=== PATIENT | female | born 1985 | race Caucasian/White ===

== ENCOUNTER 2017-01-31 08:26 | Inpatient (IN) | payer BC ==
[2017-01-31 09:03] VITALS: BMI 29.0
[2017-01-31] MEDS: Lactated Ringer's 1,000 ML IV SCH ×3 (09:20→15:37)
[2017-01-31] MEDS ORDERED: Diphenoxylate HCl/Atropine Tablet PO PRN ×2 (09:28)
[2017-01-31] MEDS ORDERED: Promethazine HCl 25 MG/ML VIAL IM PRN ×2 (09:28→10:33)
[2017-01-31] MEDS ORDERED: LR / Pitocin 40 units/1000 ml 1,000 ML IV PRN (09:28)
[2017-01-31] MEDS ORDERED: Ibuprofen 800 MG TAB PO PRN (09:28)
[2017-01-31] MEDS ORDERED: Misoprostol 200 MCG TAB PR PRN (09:28)
[2017-01-31] MEDS ORDERED: HYDROcodone/Acetaminophen 5/325 mg Tablet PO PRN ×2 (09:28)
[2017-01-31] MEDS ORDERED: Docusate 100 MG CAP PO PRN (09:28)
[2017-01-31] MEDS ORDERED: Ondansetron HCl/PF 4 MG/2 ML Vial IVP PRN ×3 (09:28→17:04)
[2017-01-31] MEDS ORDERED: Lidocaine 1% (PF) 30 ML VIAL SC PRN (09:28)
[2017-01-31] MEDS ORDERED: Acetaminophen 500 MG TAB PO PRN (09:28)
[2017-01-31] MEDS ORDERED: Fentanyl 4 mcg/Marc 0.1% Cadd 100 ML ONE (09:39)
[2017-01-31 10:01] LABS: Hematocrit 36.1 % (36.0-47.0); Red Blood Cell (RBC) Count 3.99 mill/uL (4.20-5.40); White Blood Cell (WBC) Count 11.4 thou/uL (4.8-10.8)
[2017-01-31] MEDS ORDERED: ePHEDrine/0.9% NaCl/PF SYRINGE 50 mg/10 ml SLOW IVP PRN (10:33)
[2017-01-31] MEDS ORDERED: Naloxone HCl 0.4 mg/ml Vial IVP PRN ×2 (10:33)
[2017-01-31] MEDS ORDERED: Lactated Ringer's 500 ML IV PRN (10:33)
[2017-01-31] MEDS ORDERED: Eucerin (Mineral Oil/Petrolatum,White) 30 gm Jar TOP PRN (10:33)
[2017-01-31] MEDS ORDERED: diphenhydrAMINE 50 MG/ML VIAL IVP PRN (10:33)
[2017-01-31] MEDS ORDERED: Acetaminophen 325 MG TAB PO PRN (10:33)
[2017-01-31] MEDS ORDERED: Communication Order-Pharmacy FS SCH (10:45)
[2017-01-31] MEDS ORDERED: Fentanyl 4mcg/Marcaine 0.1% Cassette 100 ML EPIDURAL SCH (10:45)
[2017-01-31] MEDS ORDERED: Lidocaine 1% (PF) 30 ML VIAL ONE (13:24)
[2017-01-31] MEDS ORDERED: LR / Pitocin 40 units/1000 ml 1,000 ML ONE (13:24)
[2017-01-31] MEDS ORDERED: Milk Of Magnesia 30 ML UDCUP PO PRN (17:04)
[2017-01-31] MEDS ORDERED: Preparation H Ointment 28 GM TUBE PR PRN (17:04)
[2017-01-31] MEDS ORDERED: diphenhydrAMINE 25 MG CAP PO PRN (17:04)
[2017-01-31] MEDS ORDERED: Bisacodyl 10 MG SUPP PR PRN (17:04)
[2017-01-31] MEDS ORDERED: Adacel (T-DAP) 0.5 ML VIAL IM ONE (17:04)
[2017-01-31] MEDS ORDERED: Benzocaine/Menthol 20-0.5% 60 ML CAN TOP PRN (17:04)
[2017-01-31] MEDS ORDERED: Lanolin Ointment 7 GM TUBE TOP PRN (17:04)
[2017-01-31] MEDS ORDERED: LR / Pitocin 40 units/1000 ml 1,000 ML IV SCH (17:15)
[2017-01-31] MEDS ORDERED: Bupivacaine 0.25% HCL 30 ML VIAL ONE (21:56)
[2017-01-31] MEDS: Docusate (Surfak) 240 MG CAP PO SCH (22:02)
[2017-01-31] MEDS: Ibuprofen 800 MG TAB PO SCH (23:41)
[2017-02-01] MEDS: Ibuprofen 800 MG TAB PO SCH ×3 (04:46→16:56)
[2017-02-01 05:54] LABS: Hematocrit 33.3 % (36.0-47.0); Mean Platelet Volume 9.5 fL (7.4-10.4); Red Blood Cell (RBC) Count 3.66 mill/uL (4.20-5.40); White Blood Cell (WBC) Count 17.4 thou/uL (4.8-10.8)
[2017-02-01] MEDS ORDERED: Prenatal Vitamin 1 TAB PO SCH (09:00)
[2017-02-01] MEDS: Docusate (Surfak) 240 MG CAP PO SCH (09:26)
[2017-02-01] MEDS: Ferrous Sulfate 325 MG TAB PO SCH ×2 (09:26→14:59)
[2017-02-01] MEDS ORDERED: Acetaminophen/Codeine 30-300mg Tablet PO PRN ×2 (17:04)
[2017-02-01] MEDS ORDERED: Zolpidem Tartrate 5 MG TAB PO PRN (17:07)
[2017-02-01 17:52] VITALS: BP 119/74; TEMP 98.2
== END 2017-02-01 19:40 | disposition home or self-care (01) | DRG 775 ==
LOC: L&D/OP 08:26 → L&D 09:13 → 3SW 21:08
PROVIDERS: ADMIT Obstetrics & Gynecology; ATTEND Obstetrics & Gynecology
PROC: 10E0XZZ Delivery of Products of Conception, External Approach (ICD-10-PCS; principal; 2017-01-31)
PROC: 0HQ9XZZ Repair Perineum Skin, External Approach (ICD-10-PCS; 2017-01-31)
PROC: 0W8NXZZ Division of Female Perineum, External Approach (ICD-10-PCS; 2017-01-31)
DX: O77.0 Labor and delivery complicated by meconium in amniotic fluid (principal); O70.0 First degree perineal laceration during delivery; Z3A.38 38 weeks gestation of pregnancy; Z37.0 Single live birth
CPT/HCPCS: 36415; 85027; 86780; 87340; J0595; J2001; J2405; S0020